=== PATIENT | male | born 1955 | race Two or more races ===

== ENCOUNTER → 2017-01-16 | Day surgery (SDC) | payer MEDICARE, MEDICAID ==
[~2017-01-16] VITALS: Ht 167.6 cm; Wt 86.0 kg
[~2017-01-16] MED LIST: CHLORHEXIDINE GLUCONATE 2 % 1 PACK (2 CLOTHS) TOPICAL PRN; DEXI30CA2 PO; DO NOT ADM ANY ANTICOAGULANT DRUGS PRN; ENAL20TA PO; FAMOTIDINE 20 MG/2 ML VIAL ONE; GABA100C4 PO; GLIP10TA6 PO; INSULIN HUMAN REGULAR 1,000 UNITS/10 ML VIAL SQ PRN; LACTATED RINGER'S 1000 ML IV PRN; LANTUS2P SQ; LEVO100T5 PO; MENA1TAB PO; METOPROLOL TARTRATE 25 MG TAB PO PRN; MIDAZOLAM HCL 2 MG/2 ML VIAL ONE; MULTTAB23 PO; NAPR500T PO; ONDANSETRON HCL 4 MG/2 ML VIAL IV PUSH ONE; ONDANSETRON HCL 4 MG/2 ML VIAL IV PUSH PRN; PERC5TAB12 PO; POVIDONE IODINE 5% (ANTISEPSIS KIT) 4 APPLICATIONS EACH NARE PRN; PROPOFOL 200 MG/20 ML AMP IV ONE; SODIUM CHLORID 0.9% 500 ML IV PRN; TRAV0.00 LEFT EYE; VITA100064 PO; VYTO10TA8 PO; [UNRECOGNIZED DRUG - SUPPLY] PO; ePHEDrine/NS 25 MG/5 ML SYR IV ONE; oxyCODONE/ACETAMINOPHEN 5 MG/325 MG TAB PO PRN
[2017-01-16 07:07] VITALS: BP 183/82; PULSE 54; RESP 16; TEMP 98; O2SAT 99
--- NOTE | 2017-01-16 07:39 | RADRPT ---
EXAM DATE/TIME: 01/16/2017 07:08 [place] COMPARISON: No previous studies available for comparison. INDICATIONS : Preop for left side ESWL. MEDICAL HISTORY : Renal calculi. SURGICAL HISTORY : None. ENCOUNTER: Initial ACUITY: 1 week PAIN SCORE: 3/10 LOCATION: Left lower quadrant abdomen FINDINGS: A calcified stone is identified overlying the lower pole left kidney. There are no suspicious calcifi cations seen overlying the right kidney or along the course of the ureters. Intestinal gas pattern is unremarkable. Bilateral hip replacements are noted. CONCLUSION: Left renal stone identified. Mitesh Robert MD on January 16, 2017 at 7:35 Board Certified Radiologist. This report was verified electronically.
--- NOTE | 2017-01-16 09:31 | PD.OP ---
Operative Report Date of Surgery: Jan 16, 2017 Preoperative Diagnosis: (1) Renal calculus, left Postoperative Diagnosis: (1) Renal calculus, left Procedure: ESWL left lower pole renal calculus Anesthesia: General Surgeon: Grady Singleton Director Of [employer](s): None Operation and Findings: Indication for procedure: Case of a pleasant 61 year-old gentleman with an approximately 1 cm left lower pole renal calculus who presents now to undergo extracorporeal shockwave lithotripsy. Operative procedure in detail: Patient was brought to the operating suite and placed supine on the lithotripsy table. He was then placed and general anesthesia. After appropriate timeout was undertaken I proceeded with localizing the patient's left lower pole renal calculus with fluoroscopy. He subsequently received extracorporeal shockwave lithotripsy utilizing the [employer] Piezolith 3000 device. The patient received a total of 3000 shocks with a maximum power level setting of 20. At the conclusion of the procedure the stone appeared somewhat process worker in intensity consistent with fragmentation. The patient tolerated the procedure without complications and was transferred to the PACU in satisfactory condition. Grady Singleton MD Jan 16, 2017 09:31
--- NOTE | 2017-01-16 09:57 | EKG ---
Date Performed: 01/16/2017 Time Performed: 07:20:17 PTAGE: 61 years EKG: SINUS BRADYCARDIA RIGHT BUNDLE BRANCH BLOCK ABNORMAL ECG PREVIOUS TRACING : 10/07/2001 09.36 Compared to the previous tracing RBBB present DOCTOR: Su Patel Interpretating Date/Time 01/16/2017 09:57:18
[2017-01-16 10:58] VITALS: BP 135/74; PULSE 48; RESP 17; TEMP 97; O2SAT 99
[2017-01-16 12:09] LABS: AUTOMATED NEUTROPHIL # 3.8 TH/MM3 (1.8-7.7); BASOPHIL % 0.7 % (0.0-2.0); EOSINOPHIL # 0.2 TH/MM3 (0-0.4); EOSINOPHIL % 2.7 % (0.0-4.0); HEMATOCRIT 38.5 % (39.0-51.0); HEMO FLAGS DIFF FINAL; LYMPH % 18.9 % (9.0-44.0); LYMPHOCYTE # 1.1 TH/MM3 (1.0-4.8); MEAN CELL VOLUME 86.1 FL (80.0-100.0); MEAN CORPUSCULAR HEMOGLOBIN 28.6 PG (27.0-34.0); MEAN CORPUSCULAR HGB CONC 33.2 % (32.0-36.0); MONO % 11.3 % (0.0-8.0); NEUT % 66.4 % (16.0-70.0); PLATELET COUNT 190 TH/MM3 (150-450); RED BLOOD COUNT 4.47 MIL/MM3 (4.50-5.90); RED CELL DISTRIBUTION WIDTH 14.6 % (11.6-17.2); WHITE BLOOD COUNT 5.7 TH/MM3 (4.0-11.0)
== END | disposition home or self-care (01) ==
LOC: HSDC 06:33
PROVIDERS: ATTEND Urology
DX: N20.0 Calculus of kidney (principal); I10 Essential (primary) hypertension; R94.31 Abnormal electrocardiogram [ECG] [EKG]; H40.9 Unspecified glaucoma; M19.90 Unspecified osteoarthritis, unspecified site; Z01.818 Encounter for other preprocedural examination; Z01.810 Encounter for preprocedural cardiovascular examination
CPT/HCPCS: 00872; 50590; 74000; 84153; 85025; 93005; J2250; J2405

== ENCOUNTER → 2017-09-23 | Day surgery (SDC) | payer MEDICARE, MEDICAID ==
[~2017-09-23] MED LIST changes: +*ONDANSETRON 4 MG VIAL PERIprocedural Use ONLY ONE; +1/2 NS + KCL 20 MEQ INJ 1,000 ML IV SCH; +CARA1TAB6 PO; -FAMOTIDINE 20 MG/2 ML VIAL ONE; -GABA100C4 PO; +HYDROmorphone HCL PF 2 MG/ML VIAL ONE; -INSULIN HUMAN REGULAR 1,000 UNITS/10 ML VIAL SQ PRN; +LEVA500T33 PO; +LEVOFLOXACIN 500 MG PREMIX INJ 100 ML IV SCH; +LIDOCAINE HCL 1% PF 5 ML SYRINGE OTHER ONE; +METOCLOPRAMIDE HCL 10 MG TAB PO ONE; -NAPR500T PO; +ONDANSETRON HCL 4 MG/2 ML VIAL IV ONE; -ONDANSETRON HCL 4 MG/2 ML VIAL IV PUSH ONE; +PROCHLORPERAZINE INJ 10 MG/2 ML VIAL IV PRN; -ePHEDrine/NS 25 MG/5 ML SYR IV ONE
[2017-09-23 07:00] LABS: BASOPHIL % 0.4 % (0.0-2.0); EOSINOPHIL # 0.1 TH/MM3 (0-0.4); EOSINOPHIL % 2.7 % (0.0-4.0); HEMATOCRIT 36.3 % (39.0-51.0); HEMOGLOBIN 11.9 GM/DL (13.0-17.0); LYMPH % 23.5 % (9.0-44.0); LYMPHOCYTE # 1.2 TH/MM3 (1.0-4.8); MEAN CORPUSCULAR HEMOGLOBIN 28.2 PG (27.0-34.0); MEAN CORPUSCULAR HGB CONC 32.8 % (32.0-36.0); MEAN PLATELET VOLUME 8.5 FL (7.0-11.0); MONO % 13.9 % (0.0-8.0); MONOCYTE # 0.7 TH/MM3 (0-0.9); NEUT % 59.5 % (16.0-70.0); PLATELET COUNT 174 TH/MM3 (150-450); RED BLOOD COUNT 4.22 MIL/MM3 (4.50-5.90); RED CELL DISTRIBUTION WIDTH 14.2 % (11.6-17.2); WHITE BLOOD COUNT 5.1 TH/MM3 (4.0-11.0)
--- NOTE | 2017-09-23 10:06 | PD.OP ---
Operative Report Date of Surgery: Sep 23, 2017 Preoperative Diagnosis: (1) Gross hematuria (2) Urethral stenosis Postoperative Diagnosis: (1) Bladder mass (2) Urethral stenosis Procedure: Cystoscopy, urethral dilation and transurethral resection of bladder tumor measuring approximately 3 cm and involving the right bladder wall. Anesthesia: General Surgeon: Grady Singleton Band Instrument Maker(s): None Operation and Findings: Indication for procedures: Case of a pleasant 62-year-old gentleman with recent history gross painless hematuria who presents today for cystoscopic evaluation. Cystoscopy was attempted over at my office but was unable to be performed due to a component of distal urethral stenosis. Operative procedures in detail: Patient was brought to the operating room suite and placed supine on the cystoscopy table. He was then placed under general anesthesia. He was then repositioned in the dorsolithotomy position and prepped and draped in normal sterile fashion. After appropriate timeout was undertaken I proceeded with urethral dilation utilizing male sounds starting at 12 Slov[place] and sequentially dilating to 20 Slovak. Next, cystoscopic evaluation was performed utilizing the rigid cystoscope with the 19 Slovak sheath and the 30 lens. The remainder of the urethra was patent without stricture formation. The prostate was not obstructing. Further passive cystoscope within the urinary bladder revealed both right and left ureteral orifices to be in correct anatomic position effluxing clear yellow urine. There was a irregular tumor mass originating from the upper right wall of the bladder measuring just over 3 cm in size suspicious for malignancy. No other bladder tumors were seen. The bladder wall had patchy trabeculations noted. I then exchanged the cystoscope for the resectoscope with the 24 Slov[place] Cutting Loop after further dilating the urethra to 26 Slovak utilizing male sounds. The tumor mass was resected and the specimen sent off to pathology. A deep biopsy was taken at the base of the tumor and sent off in a separate specimen container. The entire tumor site was then fulgurated with coagulation current. An 18 Slovak 10 cc Ma catheter was then placed and connected to gravity drainage. The patient tolerated the procedures without complications and was transferred to the PACU in satisfactory condition. Grady Singleton MD Sep 23, 2017 10:06
[2017-09-23 13:40] VITALS: BP 147/75; PULSE 54; TEMP 97; O2SAT 99
[2017-09-23 14:28] VITALS: RESP 16
== END | disposition home or self-care (01) ==
LOC: HSDC 05:57
PROVIDERS: ATTEND Urology
DX: R31.0 Gross hematuria (principal); N35.9 Urethral stricture, unspecified
CPT/HCPCS: 00912; 52235; 85025; 88305; 88307; J1170; J1956; J2250; J2405; J3010; J7120

== ENCOUNTER 2017-11-13 00:40 | Emergency (ER) | payer MEDICARE, MEDICAID ==
[~2017-11-13 00:40] MED LIST changes: -*ONDANSETRON 4 MG VIAL PERIprocedural Use ONLY ONE; -1/2 NS + KCL 20 MEQ INJ 1,000 ML IV SCH; -CHLORHEXIDINE GLUCONATE 2 % 1 PACK (2 CLOTHS) TOPICAL PRN; -DO NOT ADM ANY ANTICOAGULANT DRUGS PRN; -HYDROmorphone HCL PF 2 MG/ML VIAL ONE; -LACTATED RINGER'S 1000 ML IV PRN; -LEVOFLOXACIN 500 MG PREMIX INJ 100 ML IV SCH; -LIDOCAINE HCL 1% PF 5 ML SYRINGE OTHER ONE; -METOCLOPRAMIDE HCL 10 MG TAB PO ONE; -METOPROLOL TARTRATE 25 MG TAB PO PRN; -MIDAZOLAM HCL 2 MG/2 ML VIAL ONE; -ONDANSETRON HCL 4 MG/2 ML VIAL IV ONE; -ONDANSETRON HCL 4 MG/2 ML VIAL IV PUSH PRN; -POVIDONE IODINE 5% (ANTISEPSIS KIT) 4 APPLICATIONS EACH NARE PRN; -PROCHLORPERAZINE INJ 10 MG/2 ML VIAL IV PRN; -PROPOFOL 200 MG/20 ML AMP IV ONE; -SODIUM CHLORID 0.9% 500 ML IV PRN; -VYTO10TA8 PO; -[UNRECOGNIZED DRUG - SUPPLY] PO; -oxyCODONE/ACETAMINOPHEN 5 MG/325 MG TAB PO PRN
[2017-11-13 00:49] VITALS: BP 154/73; PULSE 60; RESP 16; TEMP 97.7; O2SAT 100
--- NOTE | 2017-11-13 01:25 | PD ---
HPI Chief Complaint: Complaint Time Seen by Provider: 01:01 Travel History International Travel<30 days: No Contact w/Intl Traveler<30days: No Traveled to known affect area: No History of Present Illness HPI Patient 62-year-old male presents emergency department for evaluation of urinary retention suprapubic discomfort. Patient has history of prostate cancer recent biopsy at outside facility. He states that he has not been able to pee for at least the last 2 hours and has significant discomfort suprapubically. Denies any fevers nausea vomiting diarrhea constipation but does endorse blood in the urine. He states symptoms are moderate, gradually worsening, context duration associated signs symptoms as above. PFSH Past Medical History Cancer: Yes (bladder) Cardiovascular Problems: Yes Diabetes: Yes Patient Takes Glucophage: Yes Diminished Hearing: No Endocrine: Yes Gastrointestinal Disorders: Yes (gerd) Genitourinary: Yes (painful urination) Hepatitis: No Hiatal Hernia: No Hypertension: Yes Immune Disorder: Yes (lupus) Musculoskeletal: Yes (OA) Neurologic: No Psychiatric: No Reproductive: No Respiratory: Yes (HX TB) Thyroid Disease: Yes Past Surgical History Abdominal Surgery: No AICD: No Cardiac Surgery: No Ear Surgery: No Endocrine Surgery: No Eye Surgery: Yes (bilat cataract) Genitourinary Surgery: Yes (ESWL) Gynecologic Surgery: No Joint Replacement: Yes (bilat hip) Oral Surgery: No Pacemaker: No Thoracic Surgery: No Social History Alcohol Use: No Tobacco Use: No Substance Use: No Allergies-Medications (Allergen,Severity, Reaction): Coded Allergies: Sulfa (Sulfonamide Antibiotics) (Unverified Allergy, Severe, Rash, 11/13/17) aspirin (Verified Allergy, Severe, 11/13/17) azathioprine (Verified Allergy, Severe, 11/13/17) cephalexin (Unverified Allergy, Severe, blood infection, 11/13/17) dexamethasone (Verified Allergy, Severe, Rash, 11/13/17) hydroxychloroquine (Unverified Allergy, Severe, 11/13/17) inflammation hydroxyzine (Unverified Allergy, Severe, Rash, 11/13/17) iodine (Verified Allergy, Severe, 11/13/17) meperidine (Unverified Allergy, Severe, Nausea/Vomiting, 11/13/17) morphine (Unverified Allergy, Severe, Nausea/Vomiting, 11/13/17) penicillin G (Unverified Allergy, Severe, Rash, 11/13/17) Reported Meds & Prescriptions Reported Meds & Active Scripts Active Percocet (Oxycodone-Acetaminophen) 5-325 mg Tab 1-2 Tab PO Q6H PRN Levaquin (Levofloxacin) 500 Mg Tablet 500 Mg PO DAILY First dose to be taken on September 24, 2017 Reported Carafate (Sucralfate) 1 Gram Tab 1 Gm PO DAILY On empty stomach Vitamin D3 (Cholecalciferol) 1,000 Unit Tab 1,000 Units PO DAILY Dexilant (Dexlansoprazole) 30 Mg Cap.bp 1 Cap PO DAILY Multi For Him 50+ (Multiple Vitamins W/ Minerals) 1 Tab Tab 1 Tab PO DAILY Vitamin K2 (Menaquinone-7) 40 Mcg Tab 100 Mcg PO DAILY Travatan Z Opth Drops (Travoprost) 0.004 % Soln 1 Drop LEFT EYE HS Levothyroxine (Levothyroxine Sodium) 100 Mcg Tab 100 Mcg PO DAILY Enalapril (Enalapril Maleate) 20 Mg Tab 20 Mg PO DAILY Glipizide 10 Mg Tab 20 Mg PO BIDAC Take 30 minutes before a meal Lantus Inj (Insulin Glargine) 1,000 Unit/10 Ml Vial 70 Units SQ HS Review of Systems Except as stated in HPI: all other systems reviewed are Neg Physical Exam Narrative GENERAL: Well-nourished, well-developed patient. SKIN: Focused skin assessment warm/dry. HEAD: Normocephalic. EYES: No scleral icterus. No injection or drainage. NECK: Supple, trachea midline. No JVD or lymphadenopathy. CARDIOVASCULAR: Regular rate and rhythm without murmurs, gallops, or rubs. RESPIRATORY: Breath sounds equal bilaterally. No accessory muscle use. GASTROINTESTINAL: Abdomen soft, non-tender, moderately distended particularly in the suprapubic area. The patient is holding his drawstring away from his suprapubic abdomen. MUSCULOSKELETAL: No cyanosis, or edema. BACK: Nontender without obvious deformity. No CVA tenderness. Data Data Last Documented VS Vital Signs Date Time Temp Pulse Resp B/P (MAP) Pulse Ox O2 Delivery O2 Flow Rate FiO2 11/13/17 00:49 97.7 60 16 154/73 (100) 100 Orders Orders Urinary Catheter Management LIZBETH.Q8H (11/13/17 01:03) Urinalysis - C+S If Indicated (11/13/17 01:03) Urine Culture (11/13/17 01:19) Ed Discharge Order (11/13/17 02:53) Labs Laboratory Tests Test 11/13/17 01:19 Urine Color LIGHT-BROWN Urine Turbidity HAZY Urine pH 7.5 Urine Specific [place] 1.014 Urine Protein 100 mg/dL Urine Glucose (UA) NEG mg/dL Urine Ketones NEG mg/dL Urine Occult Blood MOD Urine Nitrite NEG Urine Bilirubin NEG Urine Urobilinogen LESS THAN 2.0 MG/DL Urine Leukocyte Esterase TRACE Urine RBC /hpf Urine WBC 55 /hpf Urine Bacteria OCC /hpf Microscopic Urinalysis Comment CATH-CULTURE IND MDM Medical Decision Making Medical Screen Exam Complete: Yes Emergency Medical Condition: Yes Differential Diagnosis Urinary retention, prostate hypertrophy, prostate cancer, urinary tract infection Narrative Course Patient room to the emergency department, Ma catheter was placed yielding nearly 2 L of urine, blood-tinged with grain of sand size clots, was rapidly clearing. Did not require aggressive irrigation. The patient had complete relief of his symptoms. Discussed that he needs to follow-up with a primary care physician and his urologist, leg bag in place, recommended that his Ma catheter remain in place for about a week and then consideration of removal and trial voiding. He verbalized understanding and agreement he is stable for discharge Diagnosis Primary Impression: Urinary retention Disposition: 01 DISCHARGE HOME Condition: Stable Wesley Regalado MD November 13, 2017 01:24
[2017-11-13 01:55] LABS: BACTERIA, URINE OCC /hpf; BILIRUBIN, URINE NEG (NEG); BLOOD, URINE MOD (NEG); GLUCOSE,URINE NEG (NEG); KETONE, URINE NEG (NEG); NITRITE,URINE NEG (NEG); PH, URINE 7.5 (5.0-8.5); URINE LEUKOCYTE ESTERASE TRACE (NEG)
[2017-11-13 01:56] LABS: URINE COLOR LIGHT-BROWN (YELLW/STRAW)
== END 2017-11-13 03:24 | disposition home or self-care (01) ==
LOC: NEPC 00:40
DX: R33.9 Retention of urine, unspecified (principal); E11.9 Type 2 diabetes mellitus without complications; Z79.4 Long term (current) use of insulin
CPT/HCPCS: 51702; 81001; 87086

== ENCOUNTER 2018-02-19 05:50 | Inpatient (IN) ==
[2018-02-19] MEDS ORDERED: Temazepam 15 MG Capsule PO PRN (13:50)
[2018-02-19] MEDS: Enoxaparin Inj 40 MG/0.4 ML Syringe SQ SCH (14:20)
[2018-02-19] MEDS: Sod Chloride 0.9% Inj 1,000 ML IV.CONT SCH (14:20)
[2018-02-19] MEDS: Vancomycin Inj 1,000 MG in Sodium Chlor 0.9% Inj 250 ML IV.SIG SCH (14:58)
[2018-02-19] MEDS: Simethicone 125 MG Chew Tablet PO PRN (14:58)
--- NOTE | 2018-02-19 16:08 | P.HP ---
History of Present Illness Primary Care Physician: Delphine Kohli History of Present Illness: 62-year-old male with a history of type 2 diabetes, lupus and recent diagnosis of bladder cancer. He presented this morning after 2 days of recurrent chills and a fall due to weakness occurring yesterday at home. His main complaint is abdominal and flank pain on the left lower quadrant and recurring chills.. On December 31 of this year she underwent a bladder removal and replacement with ileoconduit pouch due to bladder cancer. This was performed at [facility]. In the ER he was diagnosed with pyelonephritis, his white count is normal, he has 2 stents and hydronephrosis. Overall is a very complicated urinary tract infection. She denies any chest pain, arrhythmia, lower extremity edema, or other cardiac symptoms. He denies any recent cough, wheezing, hemoptysis, or other respiratory symptoms. He does have some GI upset , loose stools recently, constipation before that, much of this may be related to his infection. Inpatient Certification: I certify that the inpatient services were ordered in accordance with Medicare regulations governing the order. This includes certification that hospital inpatient services are reasonable and necessary and in the case of services not specified as inpatient-only under 42 CFR 419.22(n), that they are appropriately provided as inpatient services in accordance to with the 2-midnight benchmark under 43 CFR 412.3(e) Estimated Total Length of Stay (Days): 5 Plans for Post Hospital Care: Home health Review of Systems All other systems reviewed negative except as stated in HPI [facility] - History History Provided By: Patient - Medical History Medical History: Medical History (Last Reviewed 02/19/18 @ 07:00 by Les Mehta) Bladder cancer (Acute) Hypertension (Acute) Lupus (Acute) Diabetes (Acute) - Surgical History Surgical History: Surgical History (Last Reviewed 02/19/18 @ 07:00 by Les Mehta) History of bladder repair surgery (Acute) Hx of bilateral hip replacements (Acute) Hx of cataract surgery (Acute) - Tobacco History Second Hand Smoke Exposure: No Tobacco Use In Past 30 Days: No Smoking Status: Former smoker - Alcohol History How Often Do You Have a Drink Containing Alcohol: Never - Substance Use History Substance History: No History of Abuse - Travel History Recent Travel in the [facility] Within the Last 8 Weeks: No Medications and Allergies Active Medications: Active Medications Acetaminophen (Tylenol) 650 mg PO Q4H PRN PRN Reason: Temp > 100.4 Al Hydroxide/Mg Hydroxide (Milk Of Magnbakari Liq) 30 ml PO Q12H PRN PRN Reason: Mild Constipation Enoxaparin Sodium (Lovenox Inj) 40 mg SQ Q24H [facility] Last Admin: 02/19/18 14:20 Dose: 40 mg Sodium Chloride (Ns Inj) 1,000 mls @ 100 mls/hr IV.CONT .Q10H [facility] Last Admin: 02/19/18 14:20 Dose: 100 mls/hr Ceftriaxone Sodium 1,000 mg/ (Sodium Chloride) 100 mls @ 200 mls/hr IV.SIG Q24H TRAN Vancomycin HCl 1,000 mg/ (Sodium Chloride) 250 mls @ 250 mls/hr IV.SIG Q24H [facility] Last Admin: 02/19/18 14:58 Dose: 250 mls/hr Simethicone (Phazyme Chew) 125 mg PO TID PRN PRN Reason: GAS RETENTION Last Admin: 02/19/18 14:58 Dose: 125 mg Temazepam (Restoril) 15 mg PO HS PRN PRN Reason: INSOMNIA Allergies Allergy/AdvReac Type Severity Reaction Status Date / Time aspirin Allergy Severe Rash Verified 02/19/18 06:49 azathioprine Allergy Severe Rash Verified 02/19/18 06:49 cephalexin Allergy Severe blood Verified 02/19/18 06:49 infection dexamethasone Allergy Severe Rash Verified 02/19/18 06:49 hydroxychloroquine Allergy Severe Rash Verified 02/19/18 06:49 hydroxyzine Allergy Severe Rash Verified 02/19/18 06:49 iodine Allergy Severe Rash Verified 02/19/18 06:49 meperidine Allergy Severe Nausea/Vomi Verified 02/19/18 06:49 ting morphine Allergy Severe Nausea/Vomi Verified 02/19/18 06:49 ting penicillin G Allergy Severe Rash Verified 02/19/18 06:49 Sulfa (Sulfonamide Allergy Severe Rash Verified 01/24/18 12:48 Antibiotics) ciprofloxacin Allergy Rash Verified 01/24/18 12:48 thioridazine [From Mellaril] Allergy Rash Verified 01/24/18 12:48 Home Medications Medication Instructions Recorded Confirmed Type acetaminophen [Acetaminophen Extra 500 mg PO Q6HR PRN 01/24/18 02/19/18 History Strength] dexlansoprazole [Dexilant] 60 mg PO DAILY 01/24/18 02/19/18 History enalapril maleate 20 mg PO DAILY 01/24/18 02/19/18 History esomeprazole magnesium [Nexium] 40 mg PO DAILY 01/24/18 02/19/18 History ezetimibe-simvastatin 10 - 20 mg PO DAILY 01/24/18 02/19/18 History glipizide 10 mg PO BID 01/24/18 02/19/18 History insulin glargine [Lantus U-100 70 unit SUB-Q DAILY 01/24/18 02/19/18 History Insulin] levothyroxine 100 mcg PO DAILY 01/24/18 02/19/18 History sennosides [Senexon] 8.6 mg PO HS 01/24/18 02/19/18 History sucralfate 1 g PO BID 01/24/18 02/19/18 History Exam Vital signs: Vital Signs 02/19/18 12:40 Temperature 98.5 F Pulse Rate 78 Respiratory Rate 18 Blood Pressure 124/60 Pulse Oximetry 99 Intake & Output 02/18/18 02/19/18 02/19/18 18:59 06:59 18:59 Weight 77.8 kg Other: Weight On Admission 77.8 kg Narrative: GENERAL: AAOx3, no acute distress, adequate nutrition, weak appearing, shivers at times SKIN: Warm and dry, no rashes. HEAD: Atraumatic. Normocephalic. EYES: Pupils equal, round, reactive to light. No scleral icterus. No injection or drainage. ENT: No nasal bleeding or discharge. Moist mucous membranes. Nonerythematous oropharynx. NECK: Trachea midline. No JVD. Thyroid size within normal limits. CARDIOVASCULAR: Regular rate and rhythm. No murmur, no gallops, no rubs. RESPIRATORY: Clear and equal to auscultation bilaterally. No crackles, no wheezes. No accessory muscle use. GASTROINTESTINAL: Abdomen soft, left pelvic and flank tenderness, nondistended, normal active bowel sounds. Hepatic and splenic margins not palpable. MUSCULOSKELETAL: Extremities without clubbing or cyanosis. No obvious deformities. No edema. NEUROLOGICAL: Awake and alert. No obvious cranial nerve deficits. Motor grossly within normal limits. No focal deficits. Five out of 5 muscle strength in the arms and legs. Normal speech. PSYCHIATRIC: Appropriate mood and affect; insight and judgment normal. Caprini VTE Risk Assessment Caprini VTE Risk Assessment: Moderate/High Risk (score >= 2) Caprini Risk Assessment Model: Point Value = 1 Point Value = 2 Point Value = 3 Point Value = 5 Age 41-60 Minor surgery BMI > 25 kg/m2 Swollen legs Varicose veins or History of unexplained or recurrent spontaneous Oral contraceptives or hormone replacement Sepsis (< 1 month) Serious lung disease, including pneumonia (< 1 month) Abnormal pulmonary function Acute myocardial infarction Congestive heart failure (< 1 month) History of inflammatory bowel disease Medical patient at bed rest Age 61-74 Arthroscopic surgery Major open surgery (> 45 min) Laparoscopic surgery (> 45 min) Malignancy Confined to bed (> 72 hours) Immobilizing plaster cast Central venous access Age >= 75 History of VTE Family history of VTE Factor V Leiden Prothrombin [id number] Lupus anticoagulant Anticardiolipin antibodies Elevated serum homocysteine Heparin-induced thrombocytopenia Other congenital or acquired thrombophilia Stroke (< 1 month) Elective arthroplasty Hip, pelvis, or leg fracture Acute spinal cord injury (< 1 month) Prophylaxis Regimen: Total Risk Factor Score Risk Level Prophylaxis Regimen 0-1 Low Early ambulation 2 Moderate Order ONE of the following: *Sequential Compression Device (SCD) *Heparin 5000 units SQ BID 3-4 Higher Order ONE of the following medications: *Heparin 5000 units SQ TID *Enoxaparin/Lovenox 40 mg SQ daily (WT < 150 kg, CrCl > 30 mL/min) *Enoxaparin/Lovenox 30 mg SQ daily (WT < 150 kg, CrCl > 10-29 mL/min) *Enoxaparin/Lovenox 30 mg SQ BID (WT < 150 kg, CrCl > 30 mL/min) AND/OR *Sequential Compression Device (SCD) 5 or more Highest Order ONE of the following medications: *Heparin 5000 units SQ TID (Preferred with Epidurals) *Enoxaparin/Lovenox 40 mg SQ daily (WT < 150 kg, CrCl > 30 mL/min) *Enoxaparin/Lovenox 30 mg SQ daily (WT < 150 kg, CrCl > 10-29 mL/min) *Enoxaparin/Lovenox 30 mg SQ BID (WT < 150 kg, CrCl > 30 mL/min) AND *Sequential Compression Device (SCD) Assessment and Plan - Plan Complicated UTI with pyelonephritis Unimpressive labs, but patient has ileoconduit pouch and history of bladder cancer, stents, etc. Continue double coverage with Rocephin and vancomycin The patient is clinically not feeling better by tomorrow we will consult infectious disease to assist with antibiotic selection Patient has multiple antibiotic allergies which makes selection difficult but he did tolerate Rocephin and vancomycin in the ER Continue with IV fluid hydration Type 2 diabetes Accu-Cheks with sliding scale insulin coverage Diabetic diet h/o Lupus No change to current treatment DVT Prophylaxis Lovenox
[2018-02-19] MEDS: Acetaminophen 325 MG Tablet PO PRN ×2 (16:13→21:51)
[2018-02-19] MEDS ORDERED: Ibuprofen 600 MG Tablet PO ONE (23:20)
[2018-02-20] MEDS: Sod Chloride 0.9% Inj 1,000 ML IV.CONT SCH ×4 (01:12→21:25)
[2018-02-20 06:52] LABS: Hematocrit 32.5 % (39.0-51.0); Hemoglobin 10.2 gm/dL (13.0-17.0); Mean Corpuscular HGB Conc 31.3 % (32.0-36.0); Mean Corpuscular Hemoglobin 26.7 pg (27.0-34.0); Mean Corpuscular Volume 85.6 fL (80.0-100.0); Mean Platelet Volume 9.1 fL (7.0-11.0); Platelet Count 189 th/mm3 (150-450); White Blood Count 14.4 th/mm3 (4.0-11.0)
[2018-02-20 07:00] LABS: Chloride 111 meq/L (98-107); Potassium 3.8 meq/L (3.5-5.1); Sodium 138 meq/L (136-145)
[2018-02-20 07:05] LABS: Calcium 8.6 mg/dL (8.5-10.1)
[2018-02-20 07:06] LABS: Anion Gap 6 meq/L (5-15); Blood Urea Nitrogen 15 mg/dL (7-18); Glucose,Random 184 mg/dL (74-106)
[2018-02-20 07:09] LABS: Glomerular Filtration Rate Greater Than 89 mL/min (>89)
[2018-02-20] MEDS: Levothyroxine 100 MCG Tablet PO SCH (07:56)
[2018-02-20] MEDS: Insulin Detemir Inj 1,000 UNIT/10 ML Vial SQ SCH ×2 (07:57→08:06)
[2018-02-20] MEDS ORDERED: Dextrose 50% in Water 50 ML Vial IV.PUSH PRN (12:18)
[2018-02-20] MEDS: Vancomycin Inj 1,000 MG in Sodium Chlor 0.9% Inj 250 ML IV.SIG SCH (14:05)
[2018-02-20] MEDS: Enoxaparin Inj 40 MG/0.4 ML Syringe SQ SCH (14:07)
[2018-02-20] MEDS: Simethicone 125 MG Chew Tablet PO PRN (14:13)
[2018-02-20] MEDS: Ibuprofen 600 MG Tablet PO PRN (14:49)
--- NOTE | 2018-02-20 16:24 | P.PNIM ---
Subjective Interval history: Patient had fevers overnight, he is now afebrile and more comfortable regarding the pain in his left lower abdomen. He has no more complaints of diarrhea or nausea or vomiting Physical Exam Vital signs: Vital Signs 02/19/18 17:54 02/19/18 18:44 02/19/18 20:00 Temperature 101.9 F H 100.6 F H 101.5 F H Pulse Rate 85 Respiratory Rate 18 Blood Pressure 141/71 H 129/59 L Pulse Oximetry 97 02/20/18 00:00 02/20/18 04:00 02/20/18 08:00 Temperature 99.7 F H 97.7 F 97.4 F L Pulse Rate 78 59 L Respiratory Rate 18 19 Blood Pressure 129/74 141/68 H Pulse Oximetry 98 100 Intake & Output 02/19/18 02/20/18 02/20/18 18:59 06:59 18:59 Intake Total 250 / 250 1365 / 1365 1590 / 1590 Balance 250 / 250 1365 / 1365 1590 / 1590 Weight 77.8 kg 82.3 kg Intake: IV 250 / 250 1000 / 1000 1350 / 1350 NS Inj 1,000 ML @ 100 mls/hr IV 1000 / 1000 1000 / 1000 .CONT .Q10H TRAN Rx#:[id number] Vancomycin Inj 1,000 MG In NS 250 / 250 250 / 250 Inj 250 ML @ 250 mls/hr IV.SIG Q24H TRAN Rx#:[id number] Rocephin Inj 1,000 MG In NS Inj 100 / 100 100 ML @ 200 mls/hr IV.SIG Q24H TRAN Rx#:[id number] Oral 365 / 365 240 / 240 Other: # Voids 1 # Urine Diapers 3 4 Weight On Admission 77.8 kg Narrative: GENERAL: AAOx3, no acute distress SKIN: Warm and dry. No rashes HEAD: Atruamtic, normocephalic. EYES: No scleral icterus. No injection or drainage. ENT: Moist mucous membranes, patent nares, no erythema of oropharynx. NECK: Supple, trachea midline. No JVD or lymphadenopathy. Normal thyroid. CARDIOVASCULAR: Regular rate and rhythm. No murmurs, gallops, or rubs. RESPIRATORY: Breath sounds clear equal bilaterally. No crackles or wheezes. No accessory muscle use. GASTROINTESTINAL: Abdomen soft, mild tenderness to palpation of left lower quadrant and left flank, nondistended, normal active bowel sounds MUSCULOSKELETAL: No cyanosis, or edema. NEURO: CN II-XII grossly intact, no focal deficits, no slurring of speech Results - Labs CBC & Chem 7: 02/20/18 06:03 02/20/18 06:03 Laboratory Results - last 24 hr 02/19/18 02/19/18 02/20/18 17:56 23:13 06:03 WBC 14.4 H RBC 3.80 L Hgb 10.2 L Hct 32.5 L MCV 85.6 MCH 26.7 L MCHC 31.3 L RDW 13.0 Plt Count 189 MPV 9.1 Sodium Potassium Chloride Carbon Dioxide Anion Gap BUN Creatinine Estimated GFR POC Glucose 192 H 197 H Random Glucose Lactic Acid Calcium 02/20/18 02/20/18 02/20/18 06:03 06:03 07:35 WBC RBC Hgb Hct MCV MCH MCHC RDW Plt Count MPV Sodium 138 Potassium 3.8 Chloride 111 H Carbon Dioxide 21.0 Anion Gap 6 BUN 15 Creatinine 0.80 Estimated GFR Greater than 89 POC Glucose 172 H Random Glucose 184 H Lactic Acid 1.1 Calcium 8.6 02/20/18 11:51 WBC RBC Hgb Hct MCV MCH MCHC RDW Plt Count MPV Sodium Potassium Chloride Carbon Dioxide Anion Gap BUN Creatinine Estimated GFR POC Glucose 241 H Random Glucose Lactic Acid Calcium Assessment and Plan - Plan Complicated UTI with pyelonephritis Unimpressive labs, but patient has ileoconduit pouch and history of bladder cancer, stents, etc. Patient continues to spike fevers despite dual coverage. Consult infectious disease to assist with antibiotic selection given multiple antibiotic allergies Type 2 diabetes Accu-Cheks with sliding scale insulin coverage Diabetic diet h/o Lupus No change to current treatment DVT Prophylaxis Lovenox
[2018-02-20] MEDS: Acetaminophen 325 MG Tablet PO PRN (16:25)
[2018-02-20] MEDS: Insulin NovoLOG Aspart Correctional Sugar Inj SQ SCH ×2 (17:26→22:09)
[2018-02-21] MEDS: Levothyroxine 100 MCG Tablet PO SCH (05:29)
[2018-02-21 06:08] LABS: Hematocrit 32.3 % (39.0-51.0); Hemoglobin 10.1 gm/dL (13.0-17.0); Mean Corpuscular HGB Conc 31.3 % (32.0-36.0); Mean Corpuscular Hemoglobin 26.8 pg (27.0-34.0); Mean Corpuscular Volume 85.7 fL (80.0-100.0); Mean Platelet Volume 8.7 fL (7.0-11.0); Platelet Count 220 th/mm3 (150-450); Red Blood Count 3.77 mil/mm3 (4.50-5.90); Red Cell Distribution Width 13.3 % (11.6-17.2); White Blood Count 11.3 th/mm3 (4.0-11.0)
[2018-02-21 06:16] LABS: Potassium 3.8 meq/L (3.5-5.1)
[2018-02-21 06:20] LABS: Calcium 8.5 mg/dL (8.5-10.1)
[2018-02-21 06:21] LABS: Carbon Dioxide 22.3 meq/L (21.0-32.0)
[2018-02-21] MEDS: Sod Chloride 0.9% Inj 1,000 ML IV.CONT SCH ×2 (06:45→17:21)
[2018-02-21] MEDS: Insulin Detemir Inj 1,000 UNIT/10 ML Vial SQ SCH (08:47)
[2018-02-21] MEDS: Simethicone 125 MG Chew Tablet PO PRN (08:48)
[2018-02-21] MEDS: Insulin NovoLOG Aspart Correctional Sugar Inj SQ SCH ×4 (08:52→22:16)
[2018-02-21] MEDS: Ibuprofen 600 MG Tablet PO PRN (08:55)
[2018-02-21] MEDS ORDERED: Senna/Docusate Sodium 8.6/50 MG Tablet PO PRN (13:37)
--- NOTE | 2018-02-21 13:37 | P.PNIM ---
Subjective Interval history: Patient had a low-grade fever this morning but is otherwise feeling slightly better, more energetic. His abdominal pain has decreased each day. Physical Exam Vital signs: Vital Signs 02/20/18 16:00 02/20/18 18:00 02/20/18 20:00 Temperature 101.4 F H 97.5 F L 97.0 F L Pulse Rate 73 Respiratory Rate 20 Blood Pressure 121/60 Pulse Oximetry 100 02/21/18 00:00 02/21/18 08:00 Temperature 98.9 F 100 F H Pulse Rate 74 92 H Respiratory Rate 20 19 Blood Pressure 118/58 L 142/66 H Pulse Oximetry 99 98 Intake & Output 02/20/18 02/21/18 02/21/18 18:59 06:59 18:59 Intake Total 2470 / 2470 2640 / 2640 340 / 340 Output Total 600 / 600 Balance 1870 / 1870 2640 / 2640 340 / 340 Weight 82.4 kg Intake: IV 1750 / 1750 2400 / 2400 100 / 100 NS Inj 1,000 ML @ 100 mls/hr IV 1000 / 1000 2000 / 2000 .CONT .Q10H TRAN Rx#:[id number] Maxipime Inj 2,000 MG In NS Inj 100 / 100 100 / 100 100 / 100 100 ML @ 200 mls/hr IV.SIG Q8H TRAN Rx#:[id number] Zyvox 600 mg Premix 300 ML @ 300 / 300 300 / 300 300 mls/hr IV.SIG Q12H TRAN Rx#: [id number] Vancomycin Inj 1,000 MG In NS 250 / 250 Inj 250 ML @ 250 mls/hr IV.SIG Q24H TRAN Rx#:[id number] Rocephin Inj 1,000 MG In NS Inj 100 / 100 100 ML @ 200 mls/hr IV.SIG Q24H TRAN Rx#:[id number] Oral 720 / 720 240 / 240 240 / 240 Output: Urine 600 / 600 Other: # Urine Diapers 3 Narrative: GENERAL: AAOx3, no acute distress SKIN: Warm and dry. No rashes HEAD: Atruamtic, normocephalic. EYES: No scleral icterus. No injection or drainage. ENT: Moist mucous membranes, patent nares, no erythema of oropharynx. NECK: Supple, trachea midline. No JVD or lymphadenopathy. Normal thyroid. CARDIOVASCULAR: Regular rate and rhythm. No murmurs, gallops, or rubs. RESPIRATORY: Breath sounds clear equal bilaterally. No crackles or wheezes. No accessory muscle use. GASTROINTESTINAL: Abdomen soft, mild tenderness to palpation of left lower quadrant and left flank, nondistended, normal active bowel sounds MUSCULOSKELETAL: No cyanosis, or edema. NEURO: CN II-XII grossly intact, no focal deficits, no slurring of speech Results - Labs CBC & Chem 7: 02/21/18 05:50 02/21/18 05:50 Laboratory Results - last 24 hr 02/20/18 02/20/18 02/21/18 16:21 22:02 05:50 WBC 11.3 H RBC 3.77 L Hgb 10.1 L Hct 32.3 L MCV 85.7 MCH 26.8 L MCHC 31.3 L RDW 13.3 Plt Count 220 MPV 8.7 Sodium Potassium Chloride Carbon Dioxide Anion Gap BUN Creatinine Estimated GFR POC Glucose 233 H 241 H Random Glucose Calcium 02/21/18 02/21/18 02/21/18 05:50 08:51 12:23 WBC RBC Hgb Hct MCV MCH MCHC RDW Plt Count MPV Sodium 140 Potassium 3.8 Chloride 111 H Carbon Dioxide 22.3 Anion Gap 7 BUN 15 Creatinine 0.91 Estimated GFR 84 L POC Glucose 225 H 257 H Random Glucose 185 H Calcium 8.5 Assessment and Plan - Plan Complicated UTI with pyelonephritis Unimpressive labs, but patient has ileoconduit pouch and history of bladder cancer, stents, etc. Antibiotics changed yesterday to cefepime and Zyvox IV Patient had low-grade fever this morning but leukocyte trend is downward Urine culture sensitivities pending Follow vitals in a.m. labs Type 2 diabetes Accu-Cheks with sliding scale insulin coverage Diabetic diet h/o Lupus No change to current treatment DVT Prophylaxis Lovenox
[2018-02-21] MEDS: Enoxaparin Inj 40 MG/0.4 ML Syringe SQ SCH (15:29)
[2018-02-22] MEDS: Ibuprofen 600 MG Tablet PO PRN (01:44)
[2018-02-22] MEDS: Sod Chloride 0.9% Inj 1,000 ML IV.CONT SCH ×2 (06:33→18:38)
[2018-02-22] MEDS: Levothyroxine 100 MCG Tablet PO SCH (06:34)
[2018-02-22] MEDS: Insulin Detemir Inj 1,000 UNIT/10 ML Vial SQ SCH (08:22)
[2018-02-22] MEDS: Insulin NovoLOG Aspart Correctional Sugar Inj SQ SCH ×4 (08:23→21:44)
--- NOTE | 2018-02-22 15:25 | P.PNIM ---
Subjective Interval history: Patient remains afebrile, abdominal pain is mostly subsided. No further episodes of diarrhea. He had a bowel movement yesterday. Physical Exam Vital signs: Vital Signs 02/21/18 16:00 02/21/18 20:00 02/22/18 00:00 Temperature 97.0 F L 96.7 F L 98 F Pulse Rate 67 64 62 Respiratory Rate 22 20 20 Blood Pressure 109/55 L 123/62 158/74 H Pulse Oximetry 100 100 100 02/22/18 08:00 02/22/18 12:00 02/22/18 13:19 Temperature 97.3 F L 97.4 F L Pulse Rate 58 L 71 Respiratory Rate 18 17 18 Blood Pressure 138/65 132/64 Pulse Oximetry 99 99 Intake & Output 02/21/18 02/22/18 02/22/18 18:59 06:59 18:59 Intake Total 2120 / 2120 2680 / 2680 400 / 400 Output Total 300 / 300 Balance 1820 / 1820 2680 / 2680 400 / 400 Weight 82.5 kg Intake: IV 1400 / 1400 2200 / 2200 400 / 400 NS Inj 1,000 ML @ 100 mls/hr IV 1000 / 1000 2000 / 2000 .CONT .Q10H TRAN Rx#:[id number] Maxipime Inj 2,000 MG In NS Inj 100 / 100 200 / 200 100 / 100 100 ML @ 200 mls/hr IV.SIG Q8H TRAN Rx#:[id number] Zyvox 600 mg Premix 300 ML @ 300 / 300 300 / 300 300 mls/hr IV.SIG Q12H TRAN Rx#: [id number] Oral 720 / 720 480 / 480 Output: Urine 300 / 300 Other: # Voids 5 Narrative: GENERAL: AAOx3, no acute distress SKIN: Warm and dry. No rashes HEAD: Atruamtic, normocephalic. EYES: No scleral icterus. No injection or drainage. ENT: Moist mucous membranes, patent nares, no erythema of oropharynx. NECK: Supple, trachea midline. No JVD or lymphadenopathy. Normal thyroid. CARDIOVASCULAR: Regular rate and rhythm. No murmurs, gallops, or rubs. RESPIRATORY: Breath sounds clear equal bilaterally. No crackles or wheezes. No accessory muscle use. GASTROINTESTINAL: Abdomen soft, nontender, nondistended, normal active bowel sounds MUSCULOSKELETAL: No cyanosis, or edema. NEURO: CN II-XII grossly intact, no focal deficits, no slurring of speech Results - Labs CBC & Chem 7: 02/21/18 05:50 02/21/18 05:50 Laboratory Results - last 24 hr 02/21/18 02/22/18 02/22/18 22:14 07:35 11:33 POC Glucose 241 H 196 H 212 H Assessment and Plan - Plan Complicated UTI with pyelonephritis Unimpressive labs, but patient has ileoconduit pouch and history of bladder cancer, stents, etc. Continue cefepime and Zyvox Patient remains afebrile Urine sensitivities have returned, Proteus mirabilis and enterococcus faecalis sensitive to Zyvox and cefepime For discharge will attempt to get Zyvox p.o., son will go and attempt to obtain prescription from pharmacy Second medication will be nitrofurantoin and should be easy to obtain If Zyvox is unable to be obtained, will give single dose of Cipro as test Patient was allergic to Cipro in the past but the allergy was questionable, she had on an empty stomach and had some associated nausea and vomiting Type 2 diabetes Accu-Cheks with sliding scale insulin coverage Diabetic diet h/o Lupus No change to current treatment DVT Prophylaxis Lovenox
[2018-02-22] MEDS: Enoxaparin Inj 40 MG/0.4 ML Syringe SQ SCH (15:30)
[2018-02-22] MEDS ORDERED: Ciprofloxacin 500 MG Tablet PO ONE (18:00)
[2018-02-23] MEDS: Levothyroxine 100 MCG Tablet PO SCH (05:25)
[2018-02-23 06:36] LABS: Hematocrit 29.8 % (39.0-51.0); Hemoglobin 9.5 gm/dL (13.0-17.0); Mean Corpuscular HGB Conc 31.8 % (32.0-36.0); Mean Corpuscular Hemoglobin 26.8 pg (27.0-34.0); Mean Corpuscular Volume 84.2 fL (80.0-100.0); Mean Platelet Volume 8.4 fL (7.0-11.0); Platelet Count 265 th/mm3 (150-450); Red Blood Count 3.53 mil/mm3 (4.50-5.90); Red Cell Distribution Width 13.1 % (11.6-17.2); White Blood Count 8.6 th/mm3 (4.0-11.0)
[2018-02-23 06:45] LABS: Chloride 106 meq/L (98-107); Potassium 3.4 meq/L (3.5-5.1); Sodium 138 meq/L (136-145)
[2018-02-23 06:48] LABS: Calcium 8.6 mg/dL (8.5-10.1)
[2018-02-23 06:49] LABS: Anion Gap 8 meq/L (5-15); Blood Urea Nitrogen 10 mg/dL (7-18); Carbon Dioxide 23.8 meq/L (21.0-32.0); Glucose,Random 195 mg/dL (74-106)
[2018-02-23 06:52] LABS: Glomerular Filtration Rate Greater Than 89 mL/min (>89)
[2018-02-23 08:12] VITALS: BP 142/70; PULSE 67; RESP 18; TEMP 98.3; O2SAT 99
[2018-02-23] MEDS: Insulin Detemir Inj 1,000 UNIT/10 ML Vial SQ SCH (08:50)
[2018-02-23] MEDS: Insulin NovoLOG Aspart Correctional Sugar Inj SQ SCH (08:53)
--- NOTE | 2018-02-23 10:54 | P.DS ---
Date of admission: 02/19/18 11:37 Primary care physician: Harper Kohli Brief History from admission: 62-year-old male with a history of type 2 diabetes, lupus and recent diagnosis of bladder cancer. He presented this morning after 2 days of recurrent chills and a fall due to weakness occurring yesterday at home. His main complaint is abdominal and flank pain on the left lower quadrant and recurring chills.. On December 31 of this year she underwent a bladder removal and replacement with ileoconduit pouch due to bladder cancer. This was performed at [facility]. In the ER he was diagnosed with pyelonephritis, his white count is normal, he has 2 stents and hydronephrosis. Overall is a very complicated urinary tract infection. She denies any chest pain, arrhythmia, lower extremity edema, or other cardiac symptoms. He denies any recent cough, wheezing, hemoptysis, or other respiratory symptoms. He does have some GI upset , loose stools recently, constipation before that, much of this may be related to his infection. DS: Medications - Discharge Medications Prescriptions: ciprofloxacin HCl 750 mg PO BID 10 Days #20 tab nitrofurantoin macrocrystal 100 mg PO BID 10 Days #20 cap DS: Summary Hospital Course: 62-year-old male with history of bladder removal secondary to bladder cancer and placement of ileoconduit pouch presented to the ER with his second bladder infection in the last 2 months. He was initially treated with Rocephin and vancomycin in the ER. That regimen was continued but his fevers persisted beyond 24 hours so infectious disease recommended changing his antibiotics to cefepime and Zyvox. His fevers subsided after that. An attempt was made to obtain p.o. Zyvox on discharge, but patient's insurance did not qualify the medication and it would have cost him over $2000 out of pocket. Patient has Cipro listed on his allergies but had a history of GI upset in the past from taking it. We did a test dose of p.o. Cipro overnight with lots of water and food, patient tolerated that dose well without any GI upset. According to the [facility] ciprofloxacin covers both his Enterococcus faecalis as well as his Proteus mirabilis. He can therefore go home on solo therapy. Last he was scheduled to have his bilateral stents removed with urology at [facility]. He, however, ended up at our hospital with a urinary tract infection. My suggestion to him is to have these bilateral stents removed to reduce the risk of ongoing or recurrent infection. My suggestion is to remove the stents within the next week while he is on the antibiotic. I am giving him 10 days of ciprofloxacin on discharge and recommending a follow-up with his urologist as soon as possible this next week. - Time Spent with Patient Total time spent providing and/or coordinating discharge services: Less than 30 minutes - Quality: VTE Deep Vein Thrombosis/Pulmonary Embolism Present on Admission: No Exam Vital signs: Vital Signs 02/22/18 12:00 02/22/18 13:19 02/22/18 15:40 Temperature 97.4 F L 97.9 F Pulse Rate 71 71 Respiratory Rate 17 18 18 Blood Pressure 132/64 158/74 H Pulse Oximetry 99 99 02/22/18 20:00 02/23/18 00:00 02/23/18 08:00 Temperature 99.2 F 99.6 F 98.3 F Pulse Rate 73 71 67 Respiratory Rate 20 20 18 Blood Pressure 156/73 H 162/76 H 142/70 H Pulse Oximetry 99 98 99 Intake & Output 02/22/18 02/23/18 02/23/18 18:59 06:59 18:59 Intake Total 1420 / 1420 1180 / 1180 Balance 1420 / 1420 1180 / 1180 Weight 82.7 kg Intake: IV 500 / 500 700 / 700 Maxipime Inj 2,000 MG In NS Inj 200 / 200 100 / 100 100 ML @ 200 mls/hr IV.SIG Q8H TRAN Rx#:[id number] Zyvox 600 mg Premix 300 ML @ 300 / 300 600 / 600 300 mls/hr IV.SIG Q12H TRAN Rx#: [id number] Oral 920 / 920 480 / 480 Other: # Voids 1 5 # Bowel Movements 1 Results Procedures completed during hospitalization: none Labs on day of discharge: Labs from last 24 hours 02/23/18 02/23/18 02/22/18 06:14 06:14 21:20 WBC 8.6 RBC 3.53 L Hgb 9.5 L Hct 29.8 L MCV 84.2 MCH 26.8 L MCHC 31.8 L RDW 13.1 Plt Count 265 MPV 8.4 Sodium 138 Potassium 3.4 L Chloride 106 Carbon Dioxide 23.8 Anion Gap 8 BUN 10 Creatinine 0.77 Estimated GFR Greater than 89 POC Glucose 263 H Random Glucose 195 H Calcium 8.6 02/22/18 02/22/18 16:30 11:33 WBC RBC Hgb Hct MCV MCH MCHC RDW Plt Count MPV Sodium Potassium Chloride Carbon Dioxide Anion Gap BUN Creatinine Estimated GFR POC Glucose 277 H 212 H Random Glucose Calcium Discharge Plan - Discharge Disposition Patient Disposition: W/Home Health Service - Discharge Condition Condition: Good - Discharge Order Discharge Orders: Discharge Order (Routine); Ordered 02/23/18 Ordered By: Sajan Aguilar - Physicians Team Attending Provider: Sajan Aguilar - Rxs /Orders / Referrals /Forms Prescriptions: New ciprofloxacin 500 mg/5 mL Suspension,Microcapsule Recon 500 mg PO BID 10 Days Qty: 20 RF: 0 ciprofloxacin HCl 750 mg Tablet 750 mg PO BID 10 Days Qty: 20 RF: 0 nitrofurantoin macrocrystal 100 mg Capsule 100 mg PO BID 10 Days Qty: 20 RF: 0 Continue acetaminophen [Acetaminophen Extra Strength] 500 mg Tablet 500 mg PO Q6HR PRN (Reason: Pain) dexlansoprazole [Dexilant] 60 mg Capsule,Biphase Delayed Releas 60 mg PO DAILY enalapril maleate 20 mg Tablet 20 mg PO DAILY esomeprazole magnesium [Nexium] 40 mg Capsule,Delayed Release(Dr/Ec) 40 mg PO DAILY ezetimibe-simvastatin 10-20 mg Tablet 10 - 20 mg PO DAILY glipizide 10 mg Tablet 10 mg PO BID insulin glargine [Lantus U-100 Insulin] 100 unit/mL Solution 70 unit SUB-Q DAILY levothyroxine 100 mcg Tablet 100 mcg PO DAILY sennosides [Senexon] 8.6 mg Tablet 8.6 mg PO HS sucralfate 1 gram Tablet 1 g PO BID Referrals: Harper Kohli [Other] - See Instructions ( Please call the physician's office to book the F/U APT W/ DR. HARPER KOHLI)
== END 2018-02-23 12:33 | disposition home health service (06) ==
LOC: PHEDDLT 11:36 → PH3 11:37
PROVIDERS: ADMIT Family Medicine; ATTEND Family Medicine